=== PATIENT | male | born 1970 | race Caucasian/White ===

== ENCOUNTER 2020-10-05 11:28 | Emergency (ER) | payer OTHER ==
[2020-10-05] MEDS ORDERED: MUCINEX SINUS PO (14:58)
== END 2020-10-05 15:26 | disposition home or self-care (01) ==
LOC: ER1 11:28
DX: J06.9 Acute upper respiratory infection, unspecified (principal); J40 Bronchitis, not specified as acute or chronic; I10 Essential (primary) hypertension; Z90.89 Acquired absence of other organs; Z79.899 Other long term (current) drug therapy; Z20.822 Contact with and (suspected) exposure to COVID-19
CPT/HCPCS: 0240U; 71045; 86403; 87081; 87880; 96372; 99283; J1100